=== PATIENT | male | born 1960 | race Caucasian/White ===

== ENCOUNTER 2023-12-20 13:05 | Emergency (ER) | payer OTHER ==
[~2023-12-20] VITALS: Ht 188 cm; Wt 122.5 kg
[2023-12-20 13:30] VITALS: BP 144/90; TEMP 98.2; O2SAT 97
[2023-12-20] MEDS: KETOROLAC TROMETHAMINE INJ 30 MG/ML VIAL IM ONE (13:45)
[2023-12-20] MEDS: ACETAMINOPHEN 325 MG TABLET PO ONE (13:46)
[2023-12-20] MEDS ORDERED: ACETAMINOPHEN 325 MG TABLET ONE (14:08)
[2023-12-20] MEDS ORDERED: KETOROLAC TROMETHAMINE INJ 30 MG/ML VIAL ONE (14:08)
[2023-12-20] MEDS: METHOCARBAMOL (750MG) 750 MG TABLET PO SCH (14:59)
[2023-12-20] MEDS ORDERED: ACET325C7 PO (15:13)
[2023-12-20] MEDS ORDERED: METH-649 PO (15:13)
[2023-12-20] MEDS ORDERED: IBUP-1957 PO (15:13)
[2023-12-21] MEDS ORDERED: HYDR-3980 PO (21:00)
== END 2023-12-20 15:35 | disposition home or self-care (01) ==
LOC: ER 13:05
DX: M54.42 Lumbago with sciatica, left side (principal); G89.29 Other chronic pain; I10 Essential (primary) hypertension
CPT/HCPCS: 99283; 96372; J1885

== ENCOUNTER 2023-12-21 19:07 | Emergency (ER) | payer OTHER ==
[~2023-12-21] VITALS: Ht 188 cm; Wt 121.6 kg
[~2023-12-21 19:07] MED LIST: ACET325C7 PO; IBUP-1957 PO; METH-649 PO
[2023-12-21 19:58] VITALS: BP 155/95; TEMP 98
[2023-12-21] MEDS ORDERED: HYDROCODONE/APAP 5/325MG TABLET ONE (20:31)
[2023-12-21] MEDS ORDERED: KETOROLAC TROMETHAMINE INJ 30 MG/ML VIAL ONE (20:31)
[2023-12-21] MEDS: HYDROCODONE/APAP 5/325MG TABLET PO ONE (20:37)
[2023-12-21] MEDS: KETOROLAC TROMETHAMINE INJ 30 MG/ML VIAL IM ONE (20:37)
[2023-12-21 21:00] VITALS: O2SAT 96
[2023-12-21] MEDS ORDERED: HYDR-3980 PO (21:00)
== END 2023-12-21 21:27 | disposition home or self-care (01) ==
LOC: ER 19:14
DX: M54.42 Lumbago with sciatica, left side (principal); I10 Essential (primary) hypertension; Z79.1 Long term (current) use of non-steroidal anti-inflammatories (NSAID)
CPT/HCPCS: 99283; 96372; J1885

== ENCOUNTER 2023-12-23 01:46 | Emergency (ER) | payer OTHER ==
[~2023-12-23 01:46] MED LIST changes: +HYDR-3980 PO
== END 2023-12-23 04:16 | disposition left against medical advice (07) ==
LOC: ER 01:49
DX: M54.9 Dorsalgia, unspecified (principal); Z53.21 Procedure and treatment not carried out due to patient leaving prior to being seen by health care provider

== ENCOUNTER 2024-03-04 00:26 | Emergency (ER) | payer OTHER ==
[~2024-03-04] VITALS: Ht 185.4 cm; Wt 111.6 kg
[2024-03-04] MEDS ORDERED: MORPHINE SULFATE INJ 2 MG/ML DISP.SYRIN ONE (01:26)
[2024-03-04] MEDS ORDERED: KETOROLAC TROMETHAMINE 15 MG/ML VIAL ONE (01:26)
[2024-03-04] MEDS ORDERED: methylPREDNISolone SOD SUCC 125 MG/2ML VIAL ONE (01:26)
[2024-03-04] MEDS ORDERED: METHOCARBAMOL (500MG) 500 MG TABLET ONE (01:27)
[2024-03-04 01:45] LABS: BASOPHILS % (AUTO) 0.7 % (0.0-2.0); EOSINOPHILS # (AUTO) 0.2 K/uL (0.0-0.7); HEMATOCRIT 41 % (39-51); HEMOGLOBIN 14.8 g/dL (13.5-17.5); LYMPHOCYTES # (AUTO) 2.1 K/uL (0.8-4.8); LYMPHOCYTES % (AUTO) 35.8 % (20.0-44.0); MEAN CORPUSCULAR HEMOGLOBIN 34 PG (26.0-33.0); MEAN CORPUSCULAR HGB CONC 36 g/dl (31.0-36.0); MEAN CORPUSCULAR VOLUME 93 fL (80-96); MONOCYTES # (AUTO) 0.5 K/uL (0.1-1.30); MONOCYTES % (AUTO) 7.7 % (2.0-12.0); NEUTROPHILS # (AUTO) 3.1 K/uL (1.8-8.9); NEUTROPHILS % (AUTO) 52.8 % (43.0-81.0); PLATELET COUNT (AUTO) 150 K/uL (150-450); RED BLOOD CELL COUNT(AUTO) 4.41 MIL/uL (4.5-6.0); RED CELL DISTRIBUTION WIDTH 13.5 % (11.5-15.0); WHITE BLOOD COUNT (AUTO) 5.9 K/uL (4.3-11.0)
[2024-03-04] MEDS: METHOCARBAMOL (750MG) 750 MG TABLET PO SCH (01:50)
[2024-03-04] MEDS: methylPREDNISolone SOD SUCC 125 MG/2ML VIAL IV ONE (01:50)
[2024-03-04] MEDS: KETOROLAC TROMETHAMINE 15 MG/ML VIAL IV ONE (01:50)
[2024-03-04] MEDS ORDERED: ONDANSETRON HCL/PF 4 MG/2 ML VIAL ONE (01:51)
[2024-03-04] MEDS: MORPHINE SULFATE INJ 2 MG/ML DISP.SYRIN IV ONE (02:02)
[2024-03-04] MEDS: ONDANSETRON HCL/PF 4 MG/2 ML VIAL IV ONE (02:02)
[2024-03-04 02:31] LABS: CALCIUM, SERUM 8.2 mg/dL (8.5-10.1); POTASSIUM 4.3 mmol/L (3.5-5.1)
[2024-03-04 02:37] LABS: ALBUMIN 3.1 g/dL (3.4-5.0); BILIRUBIN,TOTAL 0.3 mg/dL (0.2-1.0); TOTAL PROTEIN, SERUM 7.2 g/dL (6.4-8.2)
[2024-03-04] MEDS ORDERED: TIZA4TAB5 PO (03:23)
[2024-03-04] MEDS ORDERED: PRED20TA PO (03:23)
[2024-03-04 03:36] VITALS: BP 123/87; TEMP 98; O2SAT 99
== END 2024-03-04 03:36 | disposition home or self-care (01) ==
LOC: ER 00:28
DX: M54.16 Radiculopathy, lumbar region (principal); M54.42 Lumbago with sciatica, left side; I10 Essential (primary) hypertension; Z79.1 Long term (current) use of non-steroidal anti-inflammatories (NSAID)
CPT/HCPCS: 99284; 96374; 96375; 85025; 36415; 80053; J2919; J2405; J2270; J1885

== ENCOUNTER 2024-03-07 15:54 | Inpatient (IN) | payer OTHER ==
[~2024-03-07] VITALS: Ht 188 cm; Wt 120.7 kg
[~2024-03-07 15:54] MED LIST changes: +PRED20TA PO; +TIZA4TAB5 PO
[2024-03-07] MEDS ORDERED: dexaMETHasone SOD PHOSPHATE 1 ML ONE (17:41)
[2024-03-07] MEDS ORDERED: ONDANSETRON HCL/PF 4 MG/2 ML VIAL ONE (17:42)
[2024-03-07] MEDS ORDERED: MORPHINE SULFATE INJ 4 MG/ML DISP.SYRIN ONE ×3 (17:42→22:09)
[2024-03-07] MEDS ORDERED: LIDOCAINE 5% (PATCH) 1 EA PATCH TP ONE (17:42)
[2024-03-07] MEDS ORDERED: KETOROLAC TROMETHAMINE 15 MG/ML VIAL ONE (17:42)
[2024-03-07] MEDS: ONDANSETRON HCL/PF 4 MG/2 ML VIAL IV ONE (17:50)
[2024-03-07] MEDS: KETOROLAC TROMETHAMINE 15 MG/ML VIAL IV ONE (17:52)
[2024-03-07] MEDS: MORPHINE SULFATE INJ 2 MG/ML DISP.SYRIN IV ONE ×2 (17:55→19:06)
[2024-03-07] MEDS: dexaMETHasone SOD PHOSPHATE 10 MG/ML VIAL IV ONE (18:00)
[2024-03-07] MEDS: LIDOCAINE 5% (PATCH) 1 EA PATCH TP ONE (18:18)
[2024-03-07] MEDS: MORPHINE SULFATE 8 MG/ML VIAL IV ONE (22:17)
[2024-03-07] MEDS ORDERED: MAGNESIUM HYDROXIDE 30 ML UDC PO PRN (23:30)
[2024-03-07] MEDS ORDERED: ACETAMINOPHEN 325 MG TABLET PO PRN (23:30)
[2024-03-07] MEDS ORDERED: MAG HYDROX/AL HYDROX/SIMETH 30 ML UDC PO PRN (23:30)
[2024-03-07 23:47] VITALS: BP 164/92; TEMP 98.2; O2SAT 96
[2024-03-08] MEDS: METHOCARBAMOL (500MG) 500 MG TABLET PO SCH (00:01)
[2024-03-08] MEDS: MORPHINE SULFATE INJ 2 MG/ML DISP.SYRIN IV PRN (02:27)
[2024-03-08 06:34] LABS: BASOPHILS % (AUTO) 0.1 % (0.0-2.0); HEMATOCRIT 41 % (39-51); HEMOGLOBIN 14.4 g/dL (13.5-17.5); LYMPHOCYTES # (AUTO) 1.7 K/uL (0.8-4.8); LYMPHOCYTES % (AUTO) 14.8 % (20.0-44.0); MEAN CORPUSCULAR HEMOGLOBIN 32 PG (26.0-33.0); MEAN CORPUSCULAR HGB CONC 35 g/dl (31.0-36.0); MEAN CORPUSCULAR VOLUME 92 fL (80-96); MONOCYTES # (AUTO) 0.6 K/uL (0.1-1.30); MONOCYTES % (AUTO) 4.8 % (2.0-12.0); NEUTROPHILS # (AUTO) 9.3 K/uL (1.8-8.9); NEUTROPHILS % (AUTO) 80.3 % (43.0-81.0); PLATELET COUNT (AUTO) 174 K/uL (150-450); RED BLOOD CELL COUNT(AUTO) 4.49 MIL/uL (4.5-6.0); WHITE BLOOD COUNT (AUTO) 11.6 K/uL (4.3-11.0)
[2024-03-08 06:43] LABS: CALCIUM, SERUM 8.6 mg/dL (8.5-10.1); CREATININE 1.1 mg/dL (0.6-1.3); MAGNESIUM 2.2 mg/dL (1.8-2.4); PHOSPHORUS 4.7 mg/dL (2.5-4.9); POTASSIUM 4.6 mmol/L (3.5-5.1)
[2024-03-08 07:30] VITALS: BP 138/89; TEMP 97.9; O2SAT 97
[2024-03-08] MEDS: PANTOPRAZOLE 40 MG TABLET.DR PO SCH (07:50)
[2024-03-08] MEDS ORDERED: IBUP-23 PO (08:25)
[2024-03-08] MEDS: MORPHINE SULFATE INJ 2 MG/ML DISP.SYRIN IM STA (10:26)
[2024-03-08] MEDS: MORPHINE SULFATE INJ 2 MG/ML DISP.SYRIN IV STA (10:32)
[2024-03-08] MEDS: CELECOXIB 100 MG CAPSULE PO SCH (12:00)
[2024-03-08] MEDS: GABAPENTIN 100 MG CAPSULE PO SCH (12:03)
[2024-03-08] MEDS: TRAMADOL HCL 50 MG TABLET PO SCH (12:06)
[2024-03-08] MEDS: ONDANSETRON HCL/PF 4 MG/2 ML VIAL IVP PRN (12:13)
[2024-03-08] MEDS ORDERED: methylPREDNISolone DOSPAK(4MG) 1 PACK TAB.DS.PK PO ONE (13:30)
[2024-03-08] MEDS: methylPREDNISolone (4MG) 4 MG TABLET (DAY #1, PC LUNCH) PO ONE (13:54)
[2024-03-08] MEDS: ACETAMINOPHEN 650 MG/20.3 ML UDC NG SCH (13:55)
[2024-03-08 16:00] VITALS: BP 145/95; TEMP 97.7; O2SAT 98
[2024-03-08] MEDS: methylPREDNISolone (4MG) 4 MG TABLET (DAY #1 ) PO ONE (16:58)
[2024-03-08] MEDS: Z GUARD REMEDY 4 OZ OINT TP PRN (16:59)
[2024-03-08] MEDS: methylPREDNISolone (4MG) 4 MG TABLET (DAY #1 PC DINNER) PO ONE (18:20)
[2024-03-08] MEDS: HYDROMORPHONE 1 MG/1 ML DISP.SYRIN IV PRN (19:07)
[2024-03-08 20:00] VITALS: BP 169/94; TEMP 98.2; O2SAT 95
[2024-03-08] MEDS ORDERED: methylPREDNISolone (4MG) 4 MG TABLET ONE (23:45)
[2024-03-09] MEDS: methylPREDNISolone (4MG) 4 MG TABLET (DAY1,HS) PO ONE (00:27)
[2024-03-09] MEDS: ZOLPIDEM TARTRATE 5 MG TABLET PO PRN (00:31)
[2024-03-09 06:36] LABS: BASOPHILS % (AUTO) 0.1 % (0.0-2.0); EOSINOPHILS # (AUTO) 0.1 K/uL (0.0-0.7); EOSINOPHILS % (AUTO) 0.7 % (0.0-6.0); HEMATOCRIT 44 % (39-51); HEMOGLOBIN 15.1 g/dL (13.5-17.5); LYMPHOCYTES % (AUTO) 18.4 % (20.0-44.0); MEAN CORPUSCULAR HEMOGLOBIN 32 PG (26.0-33.0); MEAN CORPUSCULAR HGB CONC 35 g/dl (31.0-36.0); MEAN CORPUSCULAR VOLUME 92 fL (80-96); MONOCYTES # (AUTO) 0.6 K/uL (0.1-1.30); MONOCYTES % (AUTO) 5.9 % (2.0-12.0); NEUTROPHILS % (AUTO) 74.9 % (43.0-81.0); PLATELET COUNT (AUTO) 175 K/uL (150-450); RED BLOOD CELL COUNT(AUTO) 4.73 MIL/uL (4.5-6.0); RED CELL DISTRIBUTION WIDTH 13.4 % (11.5-15.0); WHITE BLOOD COUNT (AUTO) 10.7 K/uL (4.3-11.0)
[2024-03-09 07:18] LABS: CALCIUM, SERUM 8.6 mg/dL (8.5-10.1); CREATININE 1.2 mg/dL (0.6-1.3); MAGNESIUM 2.3 mg/dL (1.8-2.4); PHOSPHORUS 4.1 mg/dL (2.5-4.9); POTASSIUM 4.3 mmol/L (3.5-5.1)
[2024-03-09 07:30] VITALS: BP 160/86; TEMP 98.2; O2SAT 96
[2024-03-09] MEDS: methylPREDNISolone (4MG) 4 MG TABLET (DAY#2 ACB) PO ONE (08:52)
[2024-03-09] MEDS ORDERED: hydrALAZINE HCL IV 20 MG VIAL IV PRN (11:00)
[2024-03-09] MEDS: oxyCODONE/APAP (5/325 MG) 1 UDTAB TABLET PO PRN (11:50)
[2024-03-09] MEDS: methylPREDNISolone (4MG) 4 MG TABLET (DAY#2,PC LUNCH) PO ONE (12:06)
[2024-03-09] MEDS: ACETAMINOPHEN ES 500 MG TABLET PO SCH (12:54)
[2024-03-09] MEDS: GABAPENTIN 100 MG CAPSULE PO SCH (17:21)
[2024-03-09] MEDS: methylPREDNISolone (4MG) 4 MG TABLET (DAY#2, PC DINNER) PO ONE (17:21)
[2024-03-09 20:00] VITALS: BP 161/99; TEMP 98.2; O2SAT 95
[2024-03-09] MEDS: methylPREDNISolone (4MG) 4 MG TABLET (DAY#2, HS) PO ONE (21:02)
[2024-03-09] MEDS: CELECOXIB 100 MG CAPSULE PO SCH (21:02)
[2024-03-10 08:00] VITALS: BP 126/74; TEMP 98.1; O2SAT 96
[2024-03-10 08:08] LABS: BASOPHILS % (AUTO) 0.2 % (0.0-2.0); EOSINOPHILS # (AUTO) 0.1 K/uL (0.0-0.7); EOSINOPHILS % (AUTO) 1.2 % (0.0-6.0); HEMATOCRIT 42 % (39-51); HEMOGLOBIN 14.7 g/dL (13.5-17.5); LYMPHOCYTES # (AUTO) 2.1 K/uL (0.8-4.8); LYMPHOCYTES % (AUTO) 19.5 % (20.0-44.0); MEAN CORPUSCULAR HEMOGLOBIN 33 PG (26.0-33.0); MEAN CORPUSCULAR HGB CONC 35 g/dl (31.0-36.0); MEAN CORPUSCULAR VOLUME 94 fL (80-96); MONOCYTES # (AUTO) 0.6 K/uL (0.1-1.30); MONOCYTES % (AUTO) 6.1 % (2.0-12.0); NEUTROPHILS # (AUTO) 7.8 K/uL (1.8-8.9); PLATELET COUNT (AUTO) 175 K/uL (150-450); RED BLOOD CELL COUNT(AUTO) 4.49 MIL/uL (4.5-6.0); RED CELL DISTRIBUTION WIDTH 13.3 % (11.5-15.0); WHITE BLOOD COUNT (AUTO) 10.7 K/uL (4.3-11.0)
[2024-03-10 08:29] LABS: CALCIUM, SERUM 8.1 mg/dL (8.5-10.1); MAGNESIUM 2.4 mg/dL (1.8-2.4); PHOSPHORUS 3.4 mg/dL (2.5-4.9); POTASSIUM 4.7 mmol/L (3.5-5.1)
[2024-03-10] MEDS: TRAMADOL HCL 50 MG TABLET PO SCH (08:33)
[2024-03-10] MEDS: methylPREDNISolone (4MG) 4 MG TABLET (DAY#3,ACB) PO ONE (08:35)
[2024-03-10] MEDS: methylPREDNISolone (4MG) 4 MG TABLET (DAY#3,PC LUNCH) PO ONE (13:36)
[2024-03-10 16:00] VITALS: BP 151/87; TEMP 98.4; O2SAT 96
[2024-03-10] MEDS: methylPREDNISolone (4MG) 4 MG TABLET (DAY#3,PC DINNER) PO ONE (17:52)
[2024-03-10 20:00] VITALS: BP 165/96; TEMP 98; O2SAT 96
[2024-03-10] MEDS: methylPREDNISolone (4MG) 4 MG TABLET (DAY#3, HS) PO ONE (21:04)
[2024-03-11 04:00] VITALS: BP 168/92; TEMP 97.9; O2SAT 96
[2024-03-11 06:53] LABS: BASOPHILS % (AUTO) 0.4 % (0.0-2.0); EOSINOPHILS # (AUTO) 0.1 K/uL (0.0-0.7); EOSINOPHILS % (AUTO) 1.5 % (0.0-6.0); HEMATOCRIT 43 % (39-51); HEMOGLOBIN 14.7 g/dL (13.5-17.5); LYMPHOCYTES # (AUTO) 2.1 K/uL (0.8-4.8); LYMPHOCYTES % (AUTO) 21.1 % (20.0-44.0); MEAN CORPUSCULAR HEMOGLOBIN 32 PG (26.0-33.0); MEAN CORPUSCULAR HGB CONC 34 g/dl (31.0-36.0); MEAN CORPUSCULAR VOLUME 93 fL (80-96); MONOCYTES # (AUTO) 0.6 K/uL (0.1-1.30); MONOCYTES % (AUTO) 6.4 % (2.0-12.0); NEUTROPHILS # (AUTO) 7.2 K/uL (1.8-8.9); NEUTROPHILS % (AUTO) 70.6 % (43.0-81.0); PLATELET COUNT (AUTO) 162 K/uL (150-450); RED BLOOD CELL COUNT(AUTO) 4.63 MIL/uL (4.5-6.0); RED CELL DISTRIBUTION WIDTH 13.7 % (11.5-15.0); WHITE BLOOD COUNT (AUTO) 10.1 K/uL (4.3-11.0)
[2024-03-11 08:00] VITALS: BP 117/75; TEMP 97.6; O2SAT 96
[2024-03-11] MEDS: methylPREDNISolone (4MG) 4 MG TABLET (DAY #4, ACB) PO ONE (08:12)
[2024-03-11] MEDS ORDERED: CYCLOBENZAPRINE 10 MG TABLET PO PRN (10:00)
[2024-03-11] MEDS: AMLODIPINE BESYLATE 5 MG TABLET PO SCH (11:21)
[2024-03-11] MEDS: methylPREDNISolone (4MG) 4 MG TABLET (DAY #4, PC LUNCH) PO ONE (12:56)
[2024-03-11 20:00] VITALS: BP 172/83; TEMP 98.1; O2SAT 94
[2024-03-11] MEDS: methylPREDNISolone (4MG) 4 MG TABLET (DAY#4 HS) PO ONE (21:46)
[2024-03-11 22:30] VITALS: BP 142/80; TEMP 98.2; O2SAT 96
[2024-03-12 06:55] LABS: BASOPHILS % (AUTO) 0.1 % (0.0-2.0); EOSINOPHILS # (AUTO) 0.2 K/uL (0.0-0.7); EOSINOPHILS % (AUTO) 1.9 % (0.0-6.0); HEMATOCRIT 44 % (39-51); LYMPHOCYTES # (AUTO) 3.3 K/uL (0.8-4.8); LYMPHOCYTES % (AUTO) 30.8 % (20.0-44.0); MEAN CORPUSCULAR HEMOGLOBIN 33 PG (26.0-33.0); MEAN CORPUSCULAR HGB CONC 34 g/dl (31.0-36.0); MEAN CORPUSCULAR VOLUME 95 fL (80-96); MONOCYTES # (AUTO) 0.6 K/uL (0.1-1.30); MONOCYTES % (AUTO) 5.8 % (2.0-12.0); NEUTROPHILS # (AUTO) 6.6 K/uL (1.8-8.9); NEUTROPHILS % (AUTO) 61.4 % (43.0-81.0); PLATELET COUNT (AUTO) 159 K/uL (150-450); RED BLOOD CELL COUNT(AUTO) 4.61 MIL/uL (4.5-6.0); RED CELL DISTRIBUTION WIDTH 13.5 % (11.5-15.0); WHITE BLOOD COUNT (AUTO) 10.8 K/uL (4.3-11.0)
[2024-03-12] MEDS: methylPREDNISolone (4MG) 4 MG TABLET (DAY#5, ACB) PO ONE (07:47)
[2024-03-12 08:25] VITALS: BP 100/60; TEMP 97.9; O2SAT 96
[2024-03-12 09:00] VITALS: BP 96/67
[2024-03-12] MEDS ORDERED: GABA100C PO (12:27)
[2024-03-12] MEDS ORDERED: MELA1TAB47 PO (12:27)
[2024-03-12] MEDS ORDERED: PANT40TA49 PO (12:27)
[2024-03-12] MEDS ORDERED: METH4TAB17 PO (12:27)
[2024-03-12] MEDS ORDERED: CYCL10TA9 PO (12:27)
[2024-03-12] MEDS ORDERED: CELE100C PO (12:27)
[2024-03-12 13:55] VITALS: TEMP 98
[2024-03-12] MEDS ORDERED: methylPREDNISolone (4MG) 4 MG TABLET (DAY#5,HS) PO ONE (22:00)
[2024-03-13] MEDS ORDERED: methylPREDNISolone (4MG) 4 MG TABLET (DAY#6,ACB) PO ONE (07:30)
== END 2024-03-12 15:00 | disposition home or self-care (01) | DRG 347 ==
LOC: ER 15:56 → MED 22:01
PROVIDERS: ADMIT Nurse Practitioner Family; ATTEND Nurse Practitioner Acute Care
DX: M48.07 Spinal stenosis, lumbosacral region (principal); E66.9 Obesity, unspecified; M54.42 Lumbago with sciatica, left side; G89.29 Other chronic pain; I10 Essential (primary) hypertension; Z68.34 Body mass index [BMI] 34.0-34.9, adult; Z98.1 Arthrodesis status; Z76.5 Malingerer [conscious simulation]
CPT/HCPCS: 36415; 72131-TC; 80048-TC; 83735-TC; 84100-TC; 85025-TC; 97116-TC; 97530-TC; 97535-TC; G0378; J1100; J1171; J1885; J2270; J2405; J7509

== ENCOUNTER 2024-12-27 13:37 | Emergency (ER) | payer OTHER ==
[~2024-12-27] VITALS: Ht 188 cm; Wt 118.8 kg
[~2024-12-27 13:37] MED LIST changes: -ACET325C7 PO; +CELE100C PO; +CYCL10TA9 PO; +GABA100C PO; -HYDR-3980 PO; -IBUP-1957 PO; +IBUP-23 PO; +MELA1TAB47 PO; -METH-649 PO; +METH4TAB17 PO; +PANT40TA49 PO; -PRED20TA PO; -TIZA4TAB5 PO
[2024-12-27 13:57] VITALS: BP 134/81; TEMP 98; O2SAT 95
== END 2024-12-27 15:10 | disposition home or self-care (01) ==
LOC: ER 13:43
DX: M79.645 Pain in left finger(s) (principal); I11.9 Hypertensive heart disease without heart failure; Z79.52 Long term (current) use of systemic steroids; Z79.899 Other long term (current) drug therapy
CPT/HCPCS: 73130-TC